=== PATIENT | female | born 1965 | race Two or more races ===

== ENCOUNTER 2024-11-10 17:36 | Emergency (ER) | payer OTHER ==
[~2024-11-10] VITALS: Ht 154.9 cm; Wt 91.8 kg
[2024-11-10 17:51] VITALS: BP 189/95; PULSE 86; RESP 20; TEMP 98; O2SAT 99
== END 2024-11-10 21:39 | disposition home or self-care (01) ==
LOC: EMS 17:36
DX: S01.81XA Laceration without foreign body of other part of head, initial encounter (principal); I10 Essential (primary) hypertension; Z88.0 Allergy status to penicillin; Z88.1 Allergy status to other antibiotic agents; Z88.2 Allergy status to sulfonamides; Z90.49 Acquired absence of other specified parts of digestive tract; Z90.710 Acquired absence of both cervix and uterus; W22.09XA Striking against other stationary object, initial encounter; Y93.01 Activity, walking, marching and hiking; Y92.89 Other specified places as the place of occurrence of the external cause; Y99.8 Other external cause status
CPT/HCPCS: 12011; 99282; Z7502